=== PATIENT | male | born 1990 | race African-American/Black ===

== ENCOUNTER 2018-06-10 23:09 | Emergency (ER) | payer OTHER ==
[~2018-06-10] VITALS: Ht 170.2 cm; Wt 102.2 kg
[~2018-06-10 23:09] MED LIST: ALVERT PO; VNTHFA/IN INH
[2018-06-10 23:13] VITALS: TEMP 36.7; Ht 170.2 cm; Wt 102.2 kg
[2018-06-10] MEDS ORDERED: LIDOCAINE 1% BUFFERED INJ 20 ML VIAL INFIL ONE (23:30)
[2018-06-11 00:48] VITALS: BP 123/70; PULSE 73; O2SAT 99
--- NOTE | 2018-06-11 01:36 | EMERGENCY ROOM VISIT NOTE ---
History Report prepared by Theresaibnelly: Kellie Rice Under the Supervision of: Dr. Pranay Osman D.O. First contact with patient: 23:20 Chief Complaint: FOOT PAIN Stated Complaint: BLEEDING BETWEEN TOES History of Present Illness The patient is a 27 year old male who presents to the Emergency Room with complaints of constant L foot pain beginning this evening. He notes he tripped over a laptop cord and hit his foot on a bed frame, cutting it. Pain is fairly mild located in between his third and fourth toe in the webbing. The patient denies injury to any other area. He denies head trauma, LOC, SOB, CP, abdominal pain, tingling, or numbness. He notes he is unsure when he last had a tetanus shot. Source of History: patient Onset: this evening Position: foot (left) Quality: other (foot pain) Timing: constant Associated Symptoms: No LOC, No chest pain, No SOB, No abdominal pain, No numbness Note: Denies: head trauma, tingling Review of Systems See HPI for pertinent positives & negatives. A total of 10 systems reviewed and were otherwise negative. Past Medical & Surgical Medical Problems: (1) Strep pharyngitis Family History Cancer Diabetes mellitus FH: heart disease Hypertension Social History Smoking Status: Light Tobacco Smoker Occupation Status: employed Current/Historical Medications No Active Prescriptions or Reported Meds Allergies Coded Allergies: Fish (Unverified Allergy, Unknown, "ITCHY WRIST, THROAT ITCHY", 06/11/18) NO KNOWN DRUG ALLERGIES (Verified Allergy, Unknown, ., 06/11/18) Peanut (Unverified Allergy, Unknown, "THROAT CLOSES UP", 06/11/18) Physical Exam Vital Signs Date Time Temp Pulse Resp B/P (MAP) Pulse Ox O2 Delivery O2 Flow Rate FiO2 06/11/18 00:48 73 17 123/70 99 Room Air 06/10/18 23:13 36.7 78 18 121/77 98 Room Air Physical Exam GENERAL: Sitting up in bed, alert, well appearing, well nourished, no distress, non-toxic EYE EXAM: normal conjunctiva. OROPHARYNX: no exudate, no erythema, lips, buccal mucosa, and tongue normal and mucous membranes are moist NECK: supple, no nuchal rigidity, no adenopathy, non-tender LUNGS: Clear to auscultation. Normal chest wall mechanics HEART: no murmurs, S1 normal and S2 normal ABDOMEN: abdomen soft, non-tender, normo-active bowel sounds, no masses, no rebound or guarding. UPPER EXTREMITIES: upper extremities are grossly normal. LOWER EXTREMITIES: No pitting edema. Flexion and extension of hip, knee, and ankle intact. No pain throughout foot, with exception of base of 3rd MTP of L foot, 1.5 cm laceration present in between the webbing of the third and fourth toes of her left foot, mild venous oozing. Flexion and extension of the toes intact NEURO EXAM: Normal sensorium, cranial nerves II-XII grossly intact, normal speech, no gross weakness of arms. Medical Decision & Procedures ER Provider Diagnostic Interpretation: Radiology results as stated below per my review: 3 Views of L Foot: No acute fracture or dislocation. Medications Administered Medications (Trade) Dose Ordered Sig/Michael Route Start Time Stop Time Status Last Admin Dose Admin Lidocaine HCl (Buffered Lidocaine 1% Inj) 20 ml ONE ONCE INFIL 06/10/18 23:30 06/10/18 23:31 DC 06/10/18 23:30 20 ML Procedure Location: Webbing in between 3rd and 4th metatarsal of L foot Total length: 2.5 cm Complexity: simple Verbal consent was obtained after the risks and benefits were explained, including but not limited to bleeding, scarring, infection, pain, and bone/joint /nerve damage. At this time, the risks of the procedure are less than the risks of NOT performing the procedure. A time out was taken and the correct patient and site identified. The skin was prepped with betadine. The target area was anesthetized with 4 ml of 1% lidocaine without epinephrine. Copious irrigation was performed using normal saline. The skin was re-prepped with betadine and a sterile field set. The wound was explored for foreign bodies and none found. Examination revealed no injury to deep structures such as tendons, bone, or significant blood vessels. Debridement was not performed. The wound edges were approximated using 3, 5-0 simple interrupted nylon sutures. Hemostasis and excellent approximation was achieved. Antibacterial ointment and a sterile dressing applied. Detailed wound care instructions and signs and symptoms of infection reviewed with the patient. No complications and the patient tolerated the procedure well. ED Course ED COURSE: Vital signs were reviewed and showed no abnormalities. The patients medical record was reviewed The above diagnostic studies were performed and reviewed. ED treatments and interventions as stated above. 2320: The patient was evaluated in room C1B. A complete history and physical examination was performed. 2330: Ordered Lidocaine HCl 20 ml Infil. 0010: I performed a laceration repair procedure. I discussed my findings with the patient and he understands and agrees with the treatment plan. Based on the patients age, coexisting illnesses, exam and lab findings the decision to treat as an outpatient was made. The patient remained stable while under my care. The patient appeared well at the time of discharge. Medical Decision Etiologies such as fracture, dislocation, neurovascular compromise, compartment syndrome, soft tissue injury, as well as others were entertained. Patient is a 27-year-old male who presents the ER because his foot on the computer cord. He had a 2.5 cm laceration in the webbing between his third and fourth toe. Mild venous oozing. X-rays show no acute fracture. Laceration was repaired with 3 sutures a small amount Dermabond. Wound was dressed and patient was discharged with a walking boot to follow-up with PCP to have sutures removed in 7 days. Discussed with Pt concerning signs and symptoms to watch out for. Pt was instructed to follow up with their PCP and discussed with the patient their option to return to the ED at anytime for persistent or worsening symptoms. The appropriate anticipatory guidance and out-patient management, including indications for return to the emergency department, were explained at length to the patient and understood. Medication Reconcilliation Current Medication List: was personally reviewed by me Blood Pressure Screening Patient's blood pressure: Normal blood pressure Blood pressure disposition: Did not require urgent referral Impression Primary Impression: Foot laceration Additional Impression: Contusion of foot Scribe Attestation The scribe's documentation has been prepared under my direction and personally reviewed by me in its entirety. I confirm that the note above accurately reflects all work, treatment, procedures, and medical decision making performed by me. Departure Information Dispostion Home / Self-Care Prescriptions No Active Prescriptions or Reported Meds Referrals Lalo Carson M.D. (PCP) Forms HOME CARE DOCUMENTATION FORM, IMPORTANT VISIT INFORMATION Patient Instructions My [facility] Additional Instructions Please follow up with your primary care doctor with in the next 24 hours. Any worsening of your symptoms, please return to the ED immediately. This includes any fevers greater than 100.4, worsening pain, redness surrounding the laceration, green or yellow drainage, or any other concerning signs or symptoms from your standpoint. Please take Tylenol or Motrin as needed for pain. Please have sutures removed in 7 days. Problem Qualifiers Primary Impression: Foot laceration Encounter type: initial encounter Laterality: left Qualified Codes: S91.312A - Laceration without foreign body, left foot, initial encounter Additional Impression: Contusion of foot Encounter type: initial encounter Laterality: left Qualified Codes: S90.32XA - Contusion of left foot, initial encounter
--- NOTE | 2018-06-11 07:26 | DIAGNOSTIC IMAGING REPORT ---
L FOOT MIN 3 VIEWS ROUTINE CLINICAL HISTORY: 27 years-old Male presenting with l foot pain . TECHNIQUE: Frontal, oblique, and lateral views of the left foot were obtained. COMPARISON: None. FINDINGS: No acute fracture or malalignment. No advanced degenerative change. No radiographic soft tissue abnormality. IMPRESSION: No acute osseous injury. Electronically signed by: Garo Farrell M.D. 06/11/2018 7:25 AM Dictated Date/Time: 06/11/2018 7:24 AM
== END 2018-06-11 01:10 | disposition home or self-care (01) ==
LOC: C.EDB 23:10 → C.EDC 06-11 01:10
DX: S91.312A Laceration without foreign body, left foot, initial encounter (principal); W22.8XXA Striking against or struck by other objects, initial encounter; F17.200 Nicotine dependence, unspecified, uncomplicated; Z91.013 Allergy to seafood; Z91.010 Allergy to peanuts